=== PATIENT | male | born 1990 | race Caucasian/White ===

== ENCOUNTER 2017-10-19 20:52 | Emergency (ER) | payer BC, OTHER ==
[~2017-10-19] VITALS: Ht 434.3 cm; Wt 73.2 kg
[2017-10-19 20:54] VITALS: BP 134/87; PULSE 83; TEMP 36.3; O2SAT 99; Ht 434.3 cm; Wt 73.2 kg
[2017-10-19] MEDS ORDERED: TRAMADOL HCL 50 MG HOME PACK PO STA (21:14)
--- NOTE | 2017-10-19 21:19 | EMERGENCY ROOM VISIT NOTE ---
ED Visit Note First contact with patient: 21:00 CHIEF COMPLAINT: Toothache HISTORY OF PRESENT ILLNESS: This 27-year-old male patient presented to the emergency department, ambulatory, complaining of pain in the area of the socket of the #13 tooth, which was removed 2 weeks ago. The pain is now steady and severe and radiates to the face. The pain became significantly worse suddenly this morning. The patient does not have a dentist appointment set up yet, but plans to contact his dentist first thing tomorrow morning. They rate their pain a 10/10 and the 440 mg naproxen they have been taken has not relieved the pain. Denies facial swelling or fever. The patient denies any discharge from the mouth. The patient has began taking amoxicillin which he had left over from previous dental infection. REVIEW OF SYSTEMS: A 6 system review of systems was completed with positives and pertinent negatives listed in the HPI. ALLERGIES: None MEDICATIONS: None PMH: None SOCIAL HISTORY: The patient lives locally with family. He denies drug, alcohol, tobacco use. PHYSICAL EXAM: Vitals are noted on the nurse's note and reviewed by myself. Vital signs stable. Temperature 36.3C orally. GENERAL: This is a 27-year-old white male, in no acute distress, nondiaphoretic, well-developed well- nourished. Mouth: The #13 tooth has been removed. There does appear to be bone exposed at the base of the socket/gum. There is no redness, swelling, or obvious signs of an abscess on examination. The remainder of the pharynx and tonsils are without erythema, edema, or exudate. The airway is patent. There is no facial swelling, cervical or submandibular lymphadenopathy. The patient appears uncomfortable and in pain. The patient has overall good dental hygiene. EARS: External auditory canals clear, tympanic membranes pearly rodriguez without erythema or effusion bilaterally. ED COURSE: The patient was seen and evaluated as above. He is two weeks post tooth extraction, and there is exposed bone with severe pain. The symptoms seem consistent with "dry socket." I did discuss this finding with the patient and recommend he continues taking antibiotics as prescribed previously with the mouthwash he was previously prescribed. The patient will be given a home pack of pain medication, and will contact his dentist tomorrow for further evaluation and management. Discharge instructions reviewed. The patient was discharged home in good condition. I attest that I have personally reviewed the patient's current medication list. Patient was found to have normal blood pressure on screening and does not require follow-up. Differential diagnosis includes alveolar osteitis, odontalgia, periapical abscess, acute sinusitis, osteomyelitis, gingivitis, pulpitis, dental caries, periodontitis, malignancy, and others DIAGNOSIS: Alveolar Osteitis The chart was completed utilizing [employer] Speech voice recognition software. Grammatical errors, random word insertions, pronoun errors, and incomplete sentences are an occasional consequence of this system due to software limitations, ambient noise, and hardware issues. Any formal questions or concerns about the content, text, or information contained within the body of this dictation should be directly addressed to the provider for clarification. Current/Historical Medications No Active Prescriptions or Reported Meds Allergies Coded Allergies: No Known Allergies (Unverified , 10/19/17) Vital Signs Date Time Temp Pulse Resp B/P (MAP) Pulse Ox O2 Delivery O2 Flow Rate FiO2 10/19/17 20:54 36.3 83 16 134/87 99 Room Air Medications Administered Medications (Trade) Dose Ordered Sig/Beverly Route Start Time Stop Time Status Last Admin Dose Admin Tramadol HCl (Ultram Home Pack) 1 homepack UD STAT PO 10/19/17 21:14 10/19/17 21:16 DC 10/19/17 21:24 1 HOMEPACK Departure Information Impression Primary Impression: Alveolar osteitis Dispostion Home / Self-Care Condition GOOD Prescriptions No Active Prescriptions or Reported Meds Referrals Tim Amaya M.D. (PCP) Patient Instructions ED Socket Dry, [facility] Additional Instructions You have been treated in the Emergency Department for Dental Pain. You have been prescribed tramadol every 6 hours to be used for pain control. This is a narcotic medication. You cannot drive or consume alcohol while on this medicine. This medicine should only be used for pain that cannot be controlled with nodc-igw-lqyrfep pain medicines. Continue taking the antibiotics which were prescribed to you by your dentist/ surgeon. All antibiotics have the potential to cause diarrhea. Stop this medication and contact a medical provider if you were to develop any significant adverse side effects including: wheezing, shortness of breath, passing out, vomiting, or a diffuse rash. Always take antibiotics as directed and COMPLETE the ENTIRE course regardless of the improvement of your symptoms. Use the mouthwash as prescribed to you by the dentist/surgeon. For pain control, you can use the following plur-[id number] medicines (if >12 yo): Ibuprofen(Motrin, Advil) may be used for fever or pain. Use 600mg every six hours as needed. Take with food. Avoid using more than 2400mg in a 24 hour period. Do not use 2400mg per day for more than three consecutive days without physician direction. Prolonged inappropriate use can lead to stomach upset or ulcers. (AND/OR) Acetaminophen(Tylenol) may be used for fever or pain. Use 1000mg every six hours as needed. Avoid using more than 3000mg in a 24 hour period. Refrain from smoking cigarettes or using chewing tobacco until you have been evaluated by your dentist. Keeping beverages lukewarm and consuming soft foods can decrease your pain. Warm compresses over the affected area may offer some relief. You MUST seek evaluation of your dental pain by a dentist following your visit to the Emergency Department. The Emergency Department is not capable of treating dental issues long-term. You should call your dentist as soon as possible to make an appointment for evaluation of your dental pain. Return to the emergency department if you develop the following symptoms despite treatment course outlined above: fever, intractable pain, increased redness, swelling, or purulent discharge.
== END 2017-10-19 21:27 | disposition home or self-care (01) ==
LOC: C.EDB 20:53 → C.EDD 21:27
DX: M27.3 Alveolitis of jaws (principal)